=== PATIENT | female | born 1985 | race African-American/Black ===

== ENCOUNTER 2018-02-06 12:17 | Emergency (ER) | payer MEDICAID, OTHER ==
[~2018-02-06] VITALS: Ht 175.3 cm; Wt 122.5 kg
[2018-02-06 12:20] VITALS: BP 119/75
[2018-02-06] MEDS ORDERED: NKM (12:23)
--- NOTE | 2018-02-06 12:40 | Emergency Room Report ---
History of Present Illness General Chief Complaint: Flu Like Symptoms Source: Patient Present Illness HPI 32-year-old female presents to the emergency department complaining of persistent cough 3 days with increase in sputum. Patient denies fevers, chills , history of asthma/COPD or smoking. Patient states that vlid-eyd-igpnfac cough medications such as Robitussin have not been working. 6/10 in severity pain throughout lungs/chest/ribs only with coughing. Denies Cardiac hx. Patient also reports that her doctor usually prescribes her promethazine with codeine which works well. Denies sore throat, ear pain, high fevers, lethargy, neck pain/stiffness, irritability, photophobia dehydration, N/V/D. Denies Cp, Palpitations, LOC, AMS, seizures, paresthesias, or changes in Hearing or vision , no Sudden severe HAGER. Denies hx of smoking, asthma or COPD. Allergies: Coded Allergies: No Known Allergies (Unverified , 02/06/18) Patient History Past Medical History: see triage record Past Surgical History: none Pertinent Family History: none Last Menstrual Period: 01/24/2018 Now: No Immunizations: UTD Reviewed Nursing Documentation: PMH: Agreed; PSxH: Agreed Nursing Documentation-PMH Past Medical History: No Stated History Review of Systems All Other Systems: negative except mentioned in HPI Physical Exam Vital Signs Date Time Temp Pulse Resp B/P (MAP) Pulse Ox O2 Delivery O2 Flow Rate FiO2 02/06/18 12:20 98.2 79 14 119/75 98 Room Air Sp02 EP Interpretation: reviewed, normal General Appearance: well appearing, no apparent distress, alert, GCS 15, non- toxic Head: normocephalic, atraumatic Eyes: bilateral eye normal inspection, bilateral eye PERRL ENT: hearing grossly normal, normal pharynx, normal voice, nasal congestion Neck: full range of motion Respiratory: lungs clear, normal breath sounds, speaking full sentences, wheezing - scant expiratory wheezes. Cardiovascular #1: regular rate, rhythm Rectal: deferred Musculoskeletal: back normal, gait/station normal, normal range of motion, non- tender Neurologic: alert, oriented x3, responsive, motor strength/tone normal, sensory intact, normal gait, speech normal, grossly normal Psychiatric: judgement/insight normal Skin: normal color, no rash, warm/dry, well hydrated Lymphatic: no adenopathy Medical Decision Making PA Attestation Dr. Luther is my supervising Physician whom patient management has been discussed with. Diagnostic Impression: Primary Impression: Acute bronchitis Qualified Codes: J20.9 - Acute bronchitis, unspecified Additional Impression: Viral URI with cough ER Course 32-year-old female presents to the emergency department complaining of persistent cough 3 days with increase in sputum. Patient denies fevers, chills , history of asthma/COPD or smoking. Patient states that pkpi-acf-sqotamy cough medications such as Robitussin have not been working. Patient also reports that her doctor usually prescribes her promethazine with codeine which works well. Denies sore throat, ear pain, high fevers, lethargy, neck pain/ stiffness, irritability, photophobia dehydration, N/V/D. Denies Cp, Palpitations , LOC, AMS, seizures, paresthesias, or changes in Hearing or vision, no Sudden severe HAGER. Denies hx of smoking, asthma or COPD. Ddx considered but are not limited to URI, pneumonia, PE, strep pharyngitis, meningitis, bronchitis just to name a few Vital signs: Pt.is afebrile VS are WNL H&PE are most consistent with bronchitis- Given patient does not have history of fever, nontoxic in appearance and in no acute distress a do not suspect an acute bacterial illness at this time or severe viral illness. ORDERS: none required at this time, the diagnosis is clinical ED INTERVENTIONS: None required at this time. - pt. declines breathing tx here in the ED. DISCHARGE: At this time pt. is stable for d/c to home. Will provide printed patient care instructions, and any necessary prescriptions. Care plan and follow up instructions have been discussed with the patient prior to discharge. Last Vital Signs Date Time Temp Pulse Resp B/P (MAP) Pulse Ox O2 Delivery O2 Flow Rate FiO2 02/06/18 12:20 98.2 14 119/75 98 Room Air 02/06/18 12:20 79 Disposition: HOME, SELF-CARE Condition: Stable Scripts Guaifenesin (Guaifenesin) 1,200 Mg Tab.er.12h 1200 MG PO Q12HR for 5 Days, #10 TAB Prov: Marge Mai 02/06/18 Promethazine HCl (Promethazine HCl) 6.25 Mg/5 Ml Syrup 5 ML ORAL Q6H PRN for For Cough, #120 ML 0 Refills Prov: Marge Mai 02/06/18 Benzonatate* (ANDRADESALJEFFERSON HERRERA*) 100 Mg Capsule 100 MG ORAL THREE TIMES A DAY, #30 PERLE Prov: Marge Mai 02/06/18 Departure Forms: Return to Work Return to Work Date: Feb 09, 2018 Work Restrictions: None Other Restrictions: May return sooner if symptoms have resolved. Return to Full Activity: Feb 09, 2018 Patient Instructions: Acute Bronchitis, [id number]-[id number] Additional Instructions: Take medications as directed. Follow up with a Primary Care Provider in 3-5 days, even if your symptoms have resolved. --Please review list of primary care clinics, if you do not already have a primary care provider Return sooner to ED if new symptoms occur, or current symptoms become worse. - Please note that this Emergency Department Report was dictated using [employer] advisor technology software, occasionally this can lead to erroneous entry secondary to interpretation by the dictation equipment. Marge Mai Feb 06, 2018 12:40
[2018-02-06] MEDS ORDERED: TESSALON PERLE100 MG ORAL (12:43)
[2018-02-06] MEDS ORDERED: GUAIFENESIN1200 MG PO (12:43)
[2018-02-06] MEDS ORDERED: PROMETHAZI6.25 MG/2 ORAL (12:43)
[2018-02-06] MEDS ORDERED: ALBUTEROL SULF8.5 GM INH (12:49)
[2018-02-06 12:50] VITALS: BP 123/76
== END 2018-02-06 12:45 | disposition home or self-care (01) ==
LOC: EMR 12:44
DX: J06.9 Acute upper respiratory infection, unspecified (principal); J20.9 Acute bronchitis, unspecified; R05 Cough
CPT/HCPCS: 99283